=== PATIENT | male | born 1960 | race Caucasian/White ===

== ENCOUNTER 2021-05-07 11:55 | Emergency (ER) | payer OTHER ==
[~2021-05-07] VITALS: Ht 177.8 cm; Wt 77.1 kg
[2021-05-07 11:55] VITALS: BP_SYST 178
--- NOTE | 2021-05-07 11:55 | NUR ---
BROUGHT BACK TO BED #7 AND TRIAGED. REPORT GIVEN TO NAVJOT SOUSA STATES IT IS VERY HARD TO GET A BLOOD PRESSURE ON PT DUE TO TREMORS FROM [place].
--- NOTE | 2021-05-07 12:00 | NUR ---
Note rosalio in [facility] - 05/07/21 at 1210 by [email or web address] Placed in room 07 . Placed on nuclear monitoring technician, blood pressure machine and pulse oximeter. To gown for exam. Side rails up.
--- NOTE | 2021-05-07 12:02 | NUR ---
Pt brought by self, A&Ox4, pt presents to ER with swelling on bilateral lower extremities x 2 days, pt sent to r/o DVT, skin pink and warm, cap refill <3.
[2021-05-07 13:06] LABS: BASOPHILS % (AUTO) 0.3 % (0.0-2.0); EOSINOPHILS # (AUTO) 0.1 K/uL (0.0-0.4); EOSINOPHILS % (AUTO) 0.5 % (0.0-4.0); HEMATOCRIT 41.3 % (36-54); HEMOGLOBIN 14.1 g/dL (14.0-18.0); LYMPHOCYTES # (AUTO) 0.8 K/uL (1.0-5.5); LYMPHOCYTES % (AUTO) 7.8 % (20.5-51.5); MEAN CORPUSCULAR HEMOGLOBIN 31 pg (27-31); MEAN CORPUSCULAR HGB CONC 34 % (32-36); MEAN CORPUSCULAR VOLUME 91 fL (79.0-98.0); MONOCYTES % (AUTO) 9.8 % (1.7-9.3); NEUTROPHILS # (AUTO) 7.9 K/uL (1.8-7.7); NEUTROPHILS % (AUTO) 81.6 % (40.0-70.0); PLATELET COUNT (AUTO) 223 K/uL (130-430); RED BLOOD CELL COUNT(AUTO) 4.56 MIL/uL (4.2-6.2); WHITE BLOOD COUNT (AUTO) 9.7 K/uL (4.8-10.8)
[2021-05-07 13:11] LABS: CALCIUM 8.6 mg/dL (8.4-11.0); CREATININE 1.02 mg/dL (0.55-1.30); POTASSIUM 3.7 mmol/L (3.5-5.1)
[2021-05-07 13:19] LABS: ALBUMIN 4.1 g/dL (3.4-4.8); PROTHROMBIN TIME 10.4 SECS (9.5-12.5); TOTAL BILIRUBIN 0.7 mg/dL (0.0-1.0)
--- NOTE | 2021-05-07 13:45 | NUR ---
US at bedside
--- NOTE | 2021-05-07 14:30 | NUR ---
Pt A&Ox4, VSS, respirations even and unlabored, cap refill <3.
[2021-05-07 15:41] VITALS: BP_SYST 158
--- NOTE | 2021-05-07 15:43 | NUR ---
Patient given written and verbal discharge instructions and verbalizes understanding. ER MD discussed with patient the results and treatment provided. Patient in stable condition. ID arm band removed. No Rx given. Patient educated on pain management and to follow up with PMD. Pain Scale 0/10. Opportunity for questions provided and answered. Medication side effect fact sheet provided.
== END 2021-05-07 15:41 | disposition home or self-care (01) ==
LOC: SED 11:55
DX: R60.0 Localized edema (principal); G20 Parkinson's disease; I10 Essential (primary) hypertension; Z88.0 Allergy status to penicillin; Z79.899 Other long term (current) drug therapy
CPT/HCPCS: 36415; 80053; 85025; 85379; 85610-TC; 85730-TC; 93005; 93970; 99285